=== PATIENT | female | born 1985 | race Caucasian/White ===

== ENCOUNTER 2017-04-28 17:07 | Emergency (ER) | payer OTHER ==
[~2017-04-28] VITALS: Ht 175.3 cm; Wt 99.8 kg
[2017-04-28] MEDS ORDERED: CYMBALTA60 MG PO (17:19)
[2017-04-28] MEDS ORDERED: LYRICA50 MG PO (17:19)
[2017-04-28] MEDS ORDERED: RELPAX40 MG PO (17:20)
[2017-04-28] MEDS ORDERED: ZOFRAN4 MG PO (17:21)
--- OUTSIDE RECORDS SUMMARY | 2017-04-28 17:52 | External Medical Summary Rpt | CCD ---
Author Author , CHELSIE HOLGUIN Address Unknown Phone [email or web address] Purpose Continuity of Care Document - through 2016
--- OUTSIDE RECORDS SUMMARY | 2017-04-28 17:52 | External Medical Summary Rpt | CCD ---
Author Author [employer] Organization [employer] Address Unknown Phone Unavailable Purpose Continuity of Care Document - through 2016
--- OUTSIDE RECORDS SUMMARY | 2017-04-28 17:52 | External Medical Summary Rpt | CCD ---
Demographics Preferred Language Malian Marital Status Unknown Judaism Affiliation Unknown Race Unknown Ethnic Group Unknown Author Author , CHELSIE HOLGUIN Address Unknown Phone Immunization No patient found.
--- OUTSIDE RECORDS SUMMARY | 2017-04-28 17:52 | External Medical Summary Rpt | CCD ---
Author Author , CHELSIE HOLGUIN Address Unknown Phone [email or web address] Purpose Continuity of Care Document - through 2016
--- OUTSIDE RECORDS SUMMARY | 2017-04-28 17:52 | External Medical Summary Rpt | CCD ---
Demographics Preferred Language Monegasque Marital Status Unknown Buddhist Affiliation Unknown Race Unknown Ethnic Group Unknown Author Author , CHELSIE HOLGUIN Address Unknown Phone Immunization No patient found.
--- NOTE | 2017-04-28 17:53 | Emergency Room Report ---
History of Present Illness Time Seen by 719 Presenting Problem in Triage Pt arrived:Wheelchair Presenting Problem:PT C/O OF A MIGRAINE WORSE THAN NORMAL SPOTS IN LEFT EYE AND VOMITTED X4. 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 N Clinical Suspician of Infection? N Mental Status: 1 - Regular (Normal Baseline) Sepsis Risk:Low Sepsis Risk Have you (or family members/close friends) recently traveled outside the [place]? N If Yes, where/when: Have you had exposure to infectious disease within the past month? N TB? Other? Specify: Patient with frequent migraines, patient of Dr. Loo in [place], had migraine yesterday and today, returned s/p Relpax. Now having intense photophobia with some scotomata, left sided pain and posterior pain (usually posterior but bilateral); also reports emesis today. No hx of CT in past. Uses Mirena so menses irregular. No double vision or syncope. ALLERGIES Coded Allergies: No Known Allergies (04/28/17) Home Medications Reported Medications DULOXETINE HCL (Cymbalta 60MG) 60 MG PO DAILY Pregabalin (Lyrica 50MG) 75 MG PO BID ELETRIPTAN HBR (Relpax) 40 MG PO PRN PRN MIGRAINE ONDANSETRON HCL (Zofran 4MG Tab) 4 MG PO Q6HP PRN NAUSEA AND VOMITING History Medical History General CAD? No Angina: No GA: No Hypertension? No Hyperlipidemia? No CHF? No DVT? No PE? No COPD? No Asthma? No Anemia? No GERD? No Gastric ulcers? No GI Bleed? No Hernia? No Thyroid Problems? No Hypothyroidism? No CVA? No Seizures? No Diabetes? No Renal Insuffiency? No End Stage Renal Disease? No UTI? No Stones? No BPH? No GB Disease: No Nephritic Syndrome? No Asplenia? No Hepatitis? No Sickle Cell Disease? No Arthritis? No Migraines? Yes Cataracts? No Glaucoma? No MRSA? No HIV? No TB? No Anxiety? Yes Depression? No Cancer? No More? 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 N/A Social History Smoking Hx Smoker: Current Every Day Smoker Tobacco: Yes Type Cigarettes Packs/day < 1 Pack Alcohol Alcohol: No Review of Systems All Other Systems Reviewed and Negative Eyes see HPI Gastrointestinal see HPI Psychiatric/Neurological see HPI Physical Exam Vital Signs Vital Signs Date Time Temp Pulse Resp B/P Pulse O2 O2 Flow FiO2 Ox Delivery Rate 04/28 1928 98.6 61 22 153/87 99 04/28 1833 72 20 98 04/28 1711 89 20 170/89 98 General Appearance normal appearance, WD/WN, no apparent distress (photophobic) Eye Exam - bilateral eye normal exam, bilateral eye PERRL, bilateral eye EOMI (no diplopia), bilateral eye photophobia Neck normal inspection, non-tender, supple, carotid bruit Respiratory Status Yes: trachea midline, chest symmetrical, non tender chest. No: respiratory distress, tender on palpation, use of accessory muscles, pain on inspiration, pain on expiration. Lung Sounds bilateral: normal breath sounds, lungs clear. 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 Glascow Coma Scale Glascow Coma Scale Response Value EYE response: 4 Spontaneously 4 MOTOR response: 6 OBEYS 6 VERBAL response: 5 Oriented & Converses 5 Total 15 Reflexes DTR 2+ ankle (R), 2+ ankle (L) Skin intact, normal color (no petechiae) Medical Decision Making LABS/Meds/Orders Pt receiving controlled substance in ED? No Results/Orders Current Medication Orders Sig/[place] Start time Last Medication Dose Route Stop Time Status Admin Ketorolac 30 MG ONCE ONE 04/28 2000 AC Tromethamine IV 04/28 2001 Prochlorperazine 0 .STK-MED ONE 04/28 1815 DC Edisylate .ROUTE Sodium Chloride 1,000 ML .STK-MED ONE 04/28 1815 DC IV Diphenhydramine HCl 0 .STK-MED ONE 04/28 1814 DC .ROUTE Methylprednisolone 0 .STK-MED ONE 04/28 1814 DC Sodium Succinate .ROUTE Diphenhydramine HCl 12.5 MG ONCE ONE 04/28 1800 DC 04/28 IV 04/28 180 1828 Methylprednisolone 125 MG ONCE ONE 04/28 1800 DC 04/28 Sodium Succinate IV 04/28 180 182 Prochlorperazine 2.5 MG ONCE ONE 04/28 1800 DC 04/28 Edisylate IV 04/28 1801 1827 Sodium Chloride 10 ML PRN PRN 04/28 1800 AC IV 04/29 174 Sodium Chloride 1,000 ML .Q1H1M 04/28 1800 DC 04/28 IV 04/28 1900 1829 Sodium Chloride 10 ML PRN PRN 04/28 1800 AC IV 04/29 1748 Orders Procedure Date/time Status DIET-NOTHING BY MOUTH 04/[address] HEAD W/O CONTRAST 04/[address] HEAD REQ 04/28 1828 Active GEN NSG/PT REQ (NOT FOR MEDS!) 04/28 1749 Active IV SALINE LOCK 04/28 1748 Active XRAY/CT/US XRAY/CT/US CT head CT interpretation by reviewed by me ([facility] report reviewed) Time results known: 1943 CT Results normal/NAD, neg acute per [facility] Progress ED Progress Notes Date 04/28/17 Time 1945 Comment pt feeling better Departure Departure Time of Disposition 1945 Disposition DC Home or Self Care(routine) Clinical Impression Primary Impression: Migraine Qualifiers: Migraine type: without aura Status migrainosus presence: with status migrainosus Intractability: not intractable Qualified Code: G43.001 - Migraine without aura, not intractable, with status migrainosus Condition STABLE Patient Instructions Migraine -- Adult Additional Instructions Rx Naproxen; take Relpax as needed from prior Rx; take Zofran as needed from prior Rx; see Dr. Loo for follow up in one week, sooner if any concerns. Discharge Counseling Counseled pt/family regarding diagnosis, test results, medications/RX, home care, follow up needs Prescriptions Current Visit Scripts NAPROXEN (NAPROXEN 500MG TAB) 500 MG PO BIDP PRN pain #20 TAB ED Critical Care Critical Care No at 2992
--- OUTSIDE RECORDS SUMMARY | 2017-04-28 17:53 | External Medical Summary Rpt ---
Demographics Preferred Language Unknown Marital Status Unknown Uatsdin Affiliation Unknown Race Unknown Ethnic Group Unknown Author Author CHELSIE Mcacnn, [employer] Organization [employer] Address Unknown Phone Unavailable
--- OUTSIDE RECORDS SUMMARY | 2017-04-28 17:53 | External Medical Summary Rpt ---
Demographics Preferred Language Unknown Marital Status Unknown Religion Affiliation Unknown Race Unknown Ethnic Group Unknown Author Author CHELSIE Mccann, [employer] Organization [employer] Address Unknown Phone Unavailable
[2017-04-28] MEDS ORDERED: NAPROXEN SODIU500 MG PO (19:49)
[2017-04-28 19:54] VITALS: BP 153/87
--- NOTE | 2017-04-29 06:25 | RADIOLOGY REPORT PS360 ---
CT HEAD W/O CONTRAST HISTORY: Severe headache HX OF MIGRAINES, MORE INTENSE THAN USUAL ORDERING PHYSICIAN: Hanna Layne MD PATIENT AGE: 32 years COMPARISON: None TECHNIQUE: Axial images obtained without contrast. Brain and bone windows reviewed. FINDINGS: No midline shift, mass effect, intracranial hemorrhage, hydrocephalus, or extra-axial fluid collection is evident. The calvarium has an unremarkable appearance. No mastoid effusion. Left sphenoid sinus retention cyst.. IMPRESSION: No acute intracranial findings. Left sphenoid sinus retention cyst.
== END 2017-04-28 19:59 | disposition home or self-care (01) ==
LOC: ER 17:07
DX: G43.001 Migraine without aura, not intractable, with status migrainosus (principal); F17.210 Nicotine dependence, cigarettes, uncomplicated; F41.9 Anxiety disorder, unspecified